=== PATIENT | male | born 1960 | race Caucasian/White ===

== ENCOUNTER 2020-09-06 12:52 | Outpatient (RCR) | payer MEDICARE, MEDICAID, SELFPAY | END 2020-09-26 13:17 | disposition home or self-care (01) | LOC: HO.WCC 12:52 | PROVIDERS: PCP Hospitalist; Visit Provider Physician Assistant Surgical | DX: I87.311 Chronic venous hypertension (idiopathic) with ulcer of right lower extremity (principal); L97.912 Non-pressure chronic ulcer of unspecified part of right lower leg with fat layer exposed; S91.301D Unspecified open wound, right foot, subsequent encounter; L89.893 Pressure ulcer of other site, stage 3; I87.312 Chronic venous hypertension (idiopathic) with ulcer of left lower extremity; L97.123 Non-pressure chronic ulcer of left thigh with necrosis of muscle; L97.422 Non-pressure chronic ulcer of left heel and midfoot with fat layer exposed; L97.822 Non-pressure chronic ulcer of other part of left lower leg with fat layer exposed; L89.319 Pressure ulcer of right buttock, unspecified stage; L02.415 Cutaneous abscess of right lower limb; E66.01 Morbid (severe) obesity due to excess calories | CPT/HCPCS: 11042; 11045 ==